=== PATIENT | female | born 1975 | race Two or more races ===

== ENCOUNTER 2019-08-15 15:23 | Inpatient (IN) | payer SELFPAY ==
[2019-08-15 15:33] VITALS: BMI 30.2
--- NOTE | 2019-08-15 15:48 | PDOC ---
History of Present Illness - General Chief Complaint: Blood Transfusion Stated Complaint: BLOOD TRANSFUSION Time Seen by Provider: 08/15/19 15:38 - History of Present Illness Initial Comments: 44 yo F PMH CML diagnosed 8 years ago, now advanced to AML 2 months ago s/p chemo, now on Tasigna one pill twice a day, c/b pancytopenia with vaginal bleeding on TXA, presenting with generalized weakness. States that it feels identical to prior episodes when her blood counts have gotten low. Reports 6 transfusions over the past 2 months. Patient is from [facility] and is here visiting family for the past 6 days. Notes that her Hgb was 6.3 before leaving [place], and she received 2 units of blood at that time. Past History - Past Medical History Allergies/Adverse Reactions: Allergies Allergy/AdvReac Type Severity Reaction Status Date / Time No Known Allergies Allergy Verified 08/15/19 15:33 Home Medications: Ambulatory Orders Acyclovir [Zovirax -] 400 mg PO BID 08/15/19 Nilotinib HCl [Tasigna] 400 mg PO BID 08/15/19 Norethindrone Acetate 5 mg PO DAILY 08/15/19 Tranexamic Acid 1,300 mg PO TID 08/15/19 COPD: No Other medical history: CHRONIC MYELO LEUKEMIA - Immunization History Immunization Up to Date: No - Psycho Social/Smoking Cessation Hx Smoking History: Never smoked Have you smoked in the past 12 months: No Information on smoking cessation initiated: No Hx Alcohol Use: No Drug/Substance Use Hx: No *Physical Exam - Vital Signs Last Vital Signs Temp Pulse Resp BP Pulse Ox 97.8 F 96 H 16 151/77 98 08/15/19 15:30 08/15/19 15:30 08/15/19 15:30 08/15/19 15:30 08/15/19 15:30 ED Treatment Course - LABORATORY CBC & Chemistry Diagram: 08/16/19 08:10 08/16/19 08:10 Medical Decision Making - Medical Decision Making 08/15/19 14:58 44 yo F PMH CML/AML actively on chemo presenting with SOB. Concern for anemia. - CBC, CMP - EKG, trop - coags - T+S - likely admit, transfuse 08/15/19 16:58 WBC 2.2, Hgb 6.7, Platelets 125. EKG normal sinus at 88 bpm. Will transfuse and admit. Discharge - Discharge Information Problems reviewed: Yes Clinical Impression/Diagnosis: Symptomatic anemia, AML (acute myeloid leukemia), CML (chronic myeloid leukemia ) Condition: Stable - Follow up/Referral - Patient Discharge Instructions - Post Discharge Activity
[2019-08-15 16:34] LABS: MCH 27.9 pg (25.7-33.7); MCHC 33.7 g/dl (32.0-36.0); WHITE BLOOD COUNT 2.2 K/mm3 (4.0-10.0)
[2019-08-15 16:41] LABS: BASO % 0.7 % (0-2.0); EOS % 0.2 % (0-4.5); HEMATOCRIT 19.9 % (32.4-45.2); MEAN PLT VOLUME 9.3 fl (7.5-11.1); MONO % 33.3 % (3.8-10.2); NEUT % 38.8 % (42.8-82.8); PLATELET COUNT 125 K/MM3 (134-434); RBC 2.39 M/mm3 (3.60-5.2); RDW 16.2 % (11.6-15.6)
[2019-08-15 16:43] LABS: HEMOGLOBIN 6.7 GM/dL (10.7-15.3)
[2019-08-15 16:48] LABS: INR 1.37 (0.83-1.09); PROTHROMBIN TIME (PATIENT) 16.2 SEC (9.7-13.0)
[2019-08-15 16:51] LABS: ACTIVATED PTT 30.8 SECONDS (25.2-36.5)
[2019-08-15 17:10] LABS: ALBUMIN 3.9 g/dl (3.4-5.0); BILIRUBIN,TOTAL 1.8 mg/dL (0.2-1); BLOOD UREA NITROGEN 7.7 mg/dL (7-18); CALCIUM 8.5 mg/dL (8.5-10.1); CREATININE 0.6 mg/dL (0.55-1.3); POTASSIUM 3.9 mmol/L (3.5-5.1); TOT PROT 6.4 g/dl (6.4-8.2)
[2019-08-15 17:26] LABS: ANISOCYTOSIS 1+; PLATELET ESTIMATE DECREASED
--- NOTE | 2019-08-15 17:34 | PDOC ---
Documentation entered by Jacques Serrano SCRIBE, acting as scribe for Bashir Holloway MD. Bashir Holloway MD: This documentation has been prepared by the Zach gamez Xhesika, SCRIBE, under my direction and personally reviewed by me in its entirety. I confirm that the documentation accurately reflects all work, treatment, procedures, and medical decision making performed by me. Attending Attestation - Resident Resident Name: Antoni Flynn - ED Attending Attestation I have performed the following: I have examined & evaluated the patient, The case was reviewed & discussed with the resident, I agree w/resident's findings & plan, Exceptions are as noted - HPI HPI: 08/15/19 16:56 The patient is a 44 year old female with a PMH of chronic myelo leukemia ( requires blood transfusions) who presents to the ED for fatigue. Patient states she requires transfusions when her HGB is below 7. Patient states her last blood transfusion was 6 days ago (08/09/19). The patient denies shortness of breath, headache and dizziness. Denies fever, chills, cough, nausea, vomiting, diarrhea and constipation. Denies dysuria, frequency, urgency and hematuria. Allergies:, NKDA Social Hx: Denies current smoking, drinking, or other substance usage - Physicial Exam PE: 08/15/19 16:57 Vitals: Triage Vital signs reviewed Chest Wall: Nontender Cardiac: Regular rate and rhythm, no murmurs, no rubs, no gallops, Lungs: Clear to auscultation bilaterally, good air movement bilaterally, Abdomen: Soft, nondistended, normal bowel sounds, nontender to palpation Extremities: Full range of motion to all extremities, no cyanosis, clubbing, or edema Skin: Warm and dry, no rashes or lesions, no petechiae Neuro: AOX3; Cranial Nerves 2-12 grossly c intact, Strength intact to all extremities, Sensation intact to all extremities, gait normal Psych: normal mood, normal affect - Medical Decision Making 08/15/19 17:34 Chronic myeloleukemia requiring frequent blood transfusions presents with symptomatic anemia Hemoglobin 6.7 We will admit for blood transfusions and further management.
--- NOTE | 2019-08-15 19:12 | PN ---
Teaching Attending Note Name of Resident: Heena Crook ATTENDING PHYSICIAN STATEMENT I saw and evaluated the patient. I reviewed the resident's note and discussed the case with the resident. I agree with the resident's findings and plan as documented. SUBJECTIVE: Patient is a 44 year old woman with a PMH of Chronic myeloid leukemia that converted to AML (requires blood transfusions) s/p chemotherapy, now on Tasigna one pill twice a day, Pancytopenia with vaginal bleeding presenting with generalized weakness. Patient states she requires transfusions when her HGB is below 7. Patient states her last blood transfusion was 6 days ago (). The patient denies shortness of breath, headache and dizziness. Denies fever, chills, cough, nausea, vomiting, diarrhea and constipation. Denies dysuria, frequency, urgency and hematuria. Reports 6 transfusions over the past 2 months. Patient is from [facility] and is here visiting family for the past 6 days. Notes that her hemoglobin was 6.3 g/dL before leaving [place], and she received 2 units of blood at that time. Denies smoking, drinking, or other illicit drug use. OBJECTIVE: Alert Vital Signs Period Temp Pulse Resp BP Sys/Pretty Pulse Ox Last 24 Hr 97.8 F-99.3 F 93-102 16-18 127-151/58-82 98-100 HEENT: +Pallor; No Jaundice, eye redness or discharge, PERRLA, EOMI. Normocephalic, atraumatic. External ears are normal and hearing is grossly intact. No nasal discharge. Neck: Supple, nontender. No palpable adenopathy or thyromegaly. No JVD Chest: Good effort. Clear to auscultation and percussion. Heart: Regular. No S3, rub or murmur Abdomen: Not distended, soft, nontender and no HSM. No rebound or guarding. Normal bowel sounds. Ext: Peripheral pulses intact. No leg edema. Skin: Warm and dry. No petechiae, rash or ecchymosis. Neuro: Alert. Oriented x3. CN 2-12 grossly intact. Sensation grossly intact in all four extremities and DTR are symmetric. Psych: Appropriate mood and affect. Good insight. Home Medications Medication Instructions Recorded Acyclovir [Zovirax -] 400 mg PO BID 08/15/19 Nilotinib HCl [Tasigna] 400 mg PO BID 08/15/19 Norethindrone Acetate 5 mg PO DAILY 08/15/19 Tranexamic Acid 1,300 mg PO TID 08/15/19 Abnormal Lab Results 08/15/19 08/15/19 08/15/19 16:24 16:24 16:24 WBC 2.2 L RBC 2.39 L Hgb 6.7 L* Hct 19.9 L RDW 16.2 H Plt Count 125 L Absolute Neuts (auto) 0.8 L Neutrophils % 38.8 L Neutrophils % (Manual) 32.0 L Monocytes % 33.3 H Monocytes % (Manual) 27 H Nucleated RBC % 7 H PT with INR 16.20 H INR 1.37 H Anion Gap 7 L Random Glucose 175 H Total Bilirubin 1.8 H AST 12 L Creatine Kinase Crossmatch 08/15/19 08/15/19 16:24 16:24 WBC RBC Hgb Hct RDW Plt Count Absolute Neuts (auto) Neutrophils % Neutrophils % (Manual) Monocytes % Monocytes % (Manual) Nucleated RBC % PT with INR INR Anion Gap Random Glucose Total Bilirubin AST Creatine Kinase 20 L Crossmatch See Detail ASSESSMENT AND PLAN: 1. Pancytopenia/Symptomatic anemia - Anemia likely due to her leukemia. No evidence of acute blood loss. Patient being transfused 2 units PRBC. EKG shows NSR with no significant ST-T wave changes. Will implement neutropenic precautions. Will check HbA1c. Will continue comprehensive care for all of patients comorbid conditions. 2. DVT prophylaxis - Lovenox 40 mg SQ q 24 hours. 3. Advance directives - Full code
--- NOTE | 2019-08-15 19:58 | HP ---
CHIEF COMPLAINT: generalized weakness PCP:in [place] HISTORY OF PRESENT ILLNESS: 44 yo F PMH of AML ( on Tasigna) presents to ED with generalized weakness. pt states that these symptoms began last night. 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 she states that for the past 2 months her pancytopenia worsened causing her to have increased vaginal bleeding for which she takes tranexamic acid and norethindrone. she states that for the past month she has recurrent episodes of generalized weakness and needs transfusions every week. her last transfusion was 5-6 days ago in [place] which she recieved 2 units of prbc. she follows up with her oncologist 2x/ week. she came from [place] on 08/09 and is returning on 08/17. she denies fevers/ chills, nausea, vomiting, chest pain. she endorses dizziness ER course was notable for: (1)Hgb 6.7 (2)1 U pRBC (3) Recent Travel: 08/09 [place] PAST MEDICAL HISTORY: CML, AML PAST SURGICAL HISTORY: denies Social History: Smoking:denies Alcohol:social Drugs: denies Allergies No Known Allergies Allergy (Verified 08/15/19 15:33) HOME MEDICATIONS: Home Medications Medication Instructions Recorded Acyclovir [Zovirax -] 400 mg PO BID 08/15/19 Nilotinib HCl [Tasigna] 400 mg PO BID 08/15/19 Norethindrone Acetate 5 mg PO DAILY 08/15/19 Tranexamic Acid 1,300 mg PO TID 08/15/19 REVIEW OF SYSTEMS CONSTITUTIONAL: Present: generalized weakness Absent: fever, chills, diaphoresis, generalized weakness, malaise, loss of appetite, weight change HEENT: Absent: rhinorrhea, nasal congestion, throat pain, throat swelling, difficulty swallowing, mouth swelling, ear pain, eye pain, visual changes CARDIOVASCULAR: Absent: chest pain, syncope, palpitations, irregular heart rate, lightheadedness , peripheral edema RESPIRATORY: Absent: cough, shortness of breath, dyspnea with exertion, orthopnea, wheezing, stridor, hemoptysis GASTROINTESTINAL: Absent: abdominal pain, abdominal distension, nausea, vomiting, diarrhea, constipation, melena, hematochezia GENITOURINARY: Absent: dysuria, frequency, urgency, hesitancy, hematuria, flank pain, genital pain MUSCULOSKELETAL: Absent: myalgia, arthralgia, joint swelling, back pain, neck pain SKIN: Absent: rash, itching, pallor ENDOCRINE: Absent: unexplained weight gain, unexplained weight loss, heat intolerance, cold intolerance NEUROLOGIC: Present: dizziness Absent: headache, focal weakness or paresthesias, unsteady gait, seizure, mental status changes PHYSICAL EXAMINATION Vital Signs - 24 hr 08/15/19 08/15/19 15:30 18:39 Temperature 97.8 F 98.9 F Pulse Rate 96 H Pulse Rate [ 93 H Right Radial] Respiratory 16 18 Rate Blood Pressure 151/77 Blood Pressure 141/82 [Left Arm] O2 Sat by Pulse 98 98 Oximetry (%) GENERAL: Awake, alert, and fully oriented, in no acute distress. HEAD: Normal with no signs of trauma. EYES: Pupils equal, round and reactive to light, extraocular movements intact, sclera anicteric, conjunctiva clear. EARS, NOSE, THROAT: oropharynx clear without exudates. Moist mucous membranes. NECK: Normal range of motion, supple without lymphadenopathy, JVD, or masses. LUNGS: Breath sounds equal, clear to auscultation bilaterally. No wheezes, and no crackles. No accessory muscle use. HEART: Regular rate and rhythm, + S1 and S2 , systolic murmur ABDOMEN: Soft, nontender, not distended, normoactive bowel sounds, no guarding, no rebound, no masses. MUSCULOSKELETAL: Normal range of motion at all joints. No bony deformities or tenderness. No CVA tenderness. UPPER EXTREMITIES: 2+ pulses, warm, well-perfused. No cyanosis. No clubbing. No peripheral edema. LOWER EXTREMITIES: 2+ pulses, warm, well-perfused. No calf tenderness. No peripheral edema. NEUROLOGICAL: Cranial nerves II-XII intact. Normal speech. Normal gait. PSYCHIATRIC: Cooperative. Good eye contact. Appropriate mood and affect. SKIN: Warm, dry, normal turgor, no rashes or lesions noted, normal capillary refill. Laboratory Last Values WBC 2.2 K/mm3 (4.0-10.0) L 08/15/19 16:24 RBC 2.39 M/mm3 (3.60-5.2) L 08/15/19 16:24 Hgb 6.7 GM/dL (10.7-15.3) L* 08/15/19 16:24 Hct 19.9 % (32.4-45.2) L 08/15/19 16:24 MCV 83.0 fl (80-96) 08/15/19 16:24 MCH 27.9 pg (25.7-33.7) 08/15/19 16:24 MCHC 33.7 g/dl (32.0-36.0) 08/15/19 16:24 RDW 16.2 % (11.6-15.6) H 08/15/19 16:24 Plt Count 125 K/MM3 (134-434) L 08/15/19 16:24 MPV 9.3 fl (7.5-11.1) 08/15/19 16:24 Absolute Neuts (auto) 0.8 K/mm3 (1.5-8.0) L 08/15/19 16:24 Total Counted 100 08/15/19 16:24 Neutrophils % 38.8 % (42.8-82.8) L 08/15/19 16:24 Neutrophils % (Manual) 32.0 % (42.8-82.8) L 08/15/19 16:24 Band Neutrophils % 2.0 % 08/15/19 16:24 Lymphocytes % 27.0 % (8-40) 08/15/19 16:24 Lymphocytes % (Manual) 38.0 % (8-40) 08/15/19 16:24 Monocytes % 33.3 % (3.8-10.2) H 08/15/19 16:24 Monocytes % (Manual) 27 % (3.8-10.2) H 08/15/19 16:24 Eosinophils % 0.2 % (0-4.5) 08/15/19 16:24 Eosinophils % (Manual) 1.0 % (0-4.5) 08/15/19 16:24 Basophils % 0.7 % (0-2.0) 08/15/19 16:24 Nucleated RBC % 7 % (0-0) H 08/15/19 16:24 Hypochromia 1+ 08/15/19 16:24 Platelet Estimate Decreased 08/15/19 16:24 Platelet Comment No clumping noted 08/15/19 16:24 Polychromasia 1+ 01/01/20 16:24 Anisocytosis 1+ 08/15/19 16:24 Microcytosis 1+ 08/15/19 16:24 PT with INR 16.20 SEC (9.7-13.0) H 08/15/19 16:24 INR 1.37 (0.83-1.09) H 08/15/19 16:24 PTT (Actin FS) 30.8 SECONDS (25.2-36.5) 08/15/19 16:24 Sodium 138 mmol/L (136-145) 08/15/19 16:24 Potassium 3.9 mmol/L (3.5-5.1) 08/15/19 16:24 Chloride 103 mmol/L (98-107) 08/15/19 16:24 Carbon Dioxide 28 mmol/L (21-32) 08/15/19 16:24 Anion Gap 7 MMOL/L (8-16) L 08/15/19 16:24 BUN 7.7 mg/dL (7-18) 08/15/19 16:24 Creatinine 0.6 mg/dL (0.55-1.3) 08/15/19 16:24 Est GFR (CKD-EPI)AfAm 127.58 08/15/19 16:24 Est GFR (CKD-EPI)NonAf 110.08 08/15/19 16:24 Random Glucose 175 mg/dL (74-106) H 08/15/19 16:24 Calcium 8.5 mg/dL (8.5-10.1) 08/15/19 16:24 Total Bilirubin 1.8 mg/dL (0.2-1) H 08/15/19 16:24 AST 12 U/L (15-37) L 08/15/19 16:24 ALT 20 U/L (13-61) 08/15/19 16:24 Alkaline Phosphatase 63 U/L (45-117) 08/15/19 16:24 Creatine Kinase 20 U/L (26-192) L 08/15/19 16:24 Troponin I < 0.02 ng/ml (0.00-0.05) 08/15/19 16:24 Total Protein 6.4 g/dl (6.4-8.2) 08/15/19 16:24 Albumin 3.9 g/dl (3.4-5.0) 01/01/20 16:24 Blood Type O POSITIVE 08/15/19 17:04 Antibody Screen Negative 08/15/19 16:24 Crossmatch See Detail 08/15/19 16:24 ASSESSMENT/PLAN: 44 yo F PMH of AML ( on Tasigna) presents to ED with generalized weakness. pt is admitted for symptomatic anemia Normocytic anemia 2/2 AML - Hgb 6.7 - 1 U pRBC - continue to monitor CBC -goal Hgb >8 -Heme/onc recs appreciated - continue tasigna, acyclovir, tranexamic acid, norethindrone -consider stonehand consult for vaginal bleeding F/E/N - monitor lytes - regular diet Dispo: Admit to medicine Visit type - Emergency Visit Emergency Visit: Yes ED Registration Date: 08/15/19 Care time: The patient presented to the Emergency Department on the above date and was hospitalized for further evaluation of their emergent condition. - New Patient This patient is new to me today: Yes Date on this admission: 08/16/19 - Critical Care Critical Care patient: No ATTENDING PHYSICIAN STATEMENT I saw and evaluated the patient. I reviewed the resident's note and discussed the case with the resident. I agree with the resident's findings and plan as documented. SUBJECTIVE: OBJECTIVE: ASSESSMENT AND PLAN:
[2019-08-15] MEDS ORDERED: ACETAMINOPHEN 325 MG TABLET (FP) PO PRN (21:08)
[2019-08-15] MEDS ORDERED: FLU VACCINE QUAD 60 MCG/0.5 ML (MDV 19-20) IM ONE (23:30)
[2019-08-16 08:33] LABS: BASO % 1.5 % (0-2.0); EOS % 0.1 % (0-4.5); LYMPH % 32.8 % (8-40); MCH 27.8 pg (25.7-33.7); MCHC 33.9 g/dl (32.0-36.0); MEAN CELL VOLUME 82.2 fl (80-96); MEAN PLT VOLUME 9.1 fl (7.5-11.1); MONO % 32.4 % (3.8-10.2); NEUT % 33.2 % (42.8-82.8); PLATELET COUNT 123 K/MM3 (134-434); RBC 2.44 M/mm3 (3.60-5.2); RDW 15.9 % (11.6-15.6)
[2019-08-16 08:43] LABS: HEMOGLOBIN 6.8 GM/dL (10.7-15.3); WHITE BLOOD COUNT 1.8 K/mm3 (4.0-10.0)
[2019-08-16 09:00] LABS: ALBUMIN 3.4 g/dl (3.4-5.0); BILIRUBIN,TOTAL 2.2 mg/dL (0.2-1); BLOOD UREA NITROGEN 7.7 mg/dL (7-18); CALCIUM 8.4 mg/dL (8.5-10.1); CREATININE 0.6 mg/dL (0.55-1.3); MAGNESIUM 2.1 mg/dL (1.8-2.4); PHOSPHOROUS 4.7 mg/dL (2.5-4.9); POTASSIUM 3.7 mmol/L (3.5-5.1); TOT PROT 5.8 g/dl (6.4-8.2)
[2019-08-16] MEDS ORDERED: NILOTINIB HCL 400 MG PO SCH (10:00)
[2019-08-16] MEDS ORDERED: ACYCLOVIR 400 MG TABLET PO SCH (10:00)
--- NOTE | 2019-08-16 11:52 | EKG ---
Test Reason : Blood Pressure : / mmHG Vent. Rate : 088 BPM Atrial Rate : 088 BPM P-R Int : 136 ms QRS Dur : 088 ms QT Int : 360 ms P-R-T Axes : 060 025 046 degrees QTc Int : 435 ms NORMAL SINUS RHYTHM NORMAL ECG NO PREVIOUS ECGS AVAILABLE Confirmed by TIKI KAN MD ([id number]) on 08/16/2019 11:52:14 AM Referred By: Confirmed By:TIKI KAN MD
[2019-08-16 12:03] LABS: ANISOCYTOSIS 3+; MACROCYTOSIS 0; PLATELET ESTIMATE DECREASED
--- NOTE | 2019-08-16 12:06 | CONSULT ---
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 HISTORY OF PRESENT ILLNESS: 44 yo F PMH of AML ( on Tasigna) presents to ED with generalized weakness. pt states that these symptoms began last night. 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 she states that for the past 2 months her pancytopenia worsened causing her to have increased vaginal bleeding for which she takes tranexamic acid and norethindrone. she states that for the past month she has recurrent episodes of generalized weakness and needs transfusions every week. her last transfusion was 5-6 days ago in [place] which she received 2 units of prbc. she follows up with her oncologist 2x/ week. she came from [place] on 08/09 and is returning on 08/17. she denies fevers/ chills, nausea, vomiting, chest pain. pt feels better and denies any new symptoms Recent Travel: 08/09 [place], will return to [place] tomorrow PAST MEDICAL HISTORY: CML, AML PAST SURGICAL HISTORY: denies Social History: Smoking:denies Alcohol:social Drugs: denies REVIEW OF SYSTEMS: denies any symptoms , feels better , denies any fever , chills, N/V/D?C denies any abdominal pain ,denies any hematuria or melena , no plapitation , no dizziness , no chest pain PHYSICAL EXAMINATION Vital Signs - 24 hr 08/15/19 08/15/19 08/15/19 15:30 18:39 19:56 Temperature 97.8 F 98.9 F 98.5 F Pulse Rate 96 H Pulse Rate [ 93 H 98 H Right Radial] Respiratory 16 18 18 Rate Blood Pressure 151/77 Blood Pressure 141/82 147/77 [Left Arm] O2 Sat by Pulse 98 98 100 Oximetry (%) 08/15/19 08/15/19 08/15/19 20:10 21:12 21:40 Temperature 99.3 F 99.2 F 98.4 F Pulse Rate 86 Pulse Rate [ 102 H Right Radial] Respiratory 18 18 Rate Blood Pressure 136/72 Blood Pressure 127/58 L [Left Arm] O2 Sat by Pulse 100 Oximetry (%) 0108/16/19 08/16/19 21:50 02:27 02:28 Temperature 97.8 F Pulse Rate 85 Pulse Rate [ Right Radial] Respiratory 18 18 18 Rate Blood Pressure 137/69 Blood Pressure [Left Arm] O2 Sat by Pulse 100 100 Oximetry (%) 08/16/19 08/16/19 06:16 08:30 Temperature 98.2 F 98.8 F Pulse Rate 82 90 Pulse Rate [ Right Radial] Respiratory 18 18 Rate Blood Pressure 124/65 123/70 Blood Pressure [Left Arm] O2 Sat by Pulse Oximetry (%) GENERAL: Awake, alert, and fully oriented, in no acute distress.pallor HEAD: Normal with no signs of trauma.hair loss EYES: Pupils equal, round and reactive to light, extraocular movements intact, sclera anicteric, EARS, NOSE, THROAT: Ears normal, nares patent, oropharynx clear without exudates. Moist mucous membranes.no thrush or mycositis NECK: Normal range of motion, supple without lymphadenopathy, breast with no palpated masses noded : no enlarged nodules palpated LUNGS: Breath sounds equal, clear to auscultation bilaterally. No wheezes, and no crackles. No accessory muscle use. HEART: Regular rate and rhythm, normal S1 and S2 without murmur, rub or gallop. ABDOMEN: Soft, nontender, not distended, normoactive bowel sounds, no guarding, LOWER EXTREMITIES: 2+ pulses, warm, well-perfused. No calf tenderness. No peripheral edema. NEUROLOGICAL: no focal deficit . Normal speech. PSYCHIATRIC: Cooperative. Good eye contact. SKIN: Warm, dry, normal turgor, head hair loss Laboratory Results - last 24 hr 08/15/19 08/15/19 08/15/19 16:24 16:24 16:24 WBC 2.2 L RBC 2.39 L Hgb 6.7 L* Hct 19.9 L MCV 83.0 MCH 27.9 MCHC 33.7 RDW 16.2 H Plt Count 125 L MPV 9.3 Absolute Neuts (auto) 0.8 L Total Counted 100 Neutrophils % 38.8 L Neutrophils % (Manual) 32.0 L Band Neutrophils % 2.0 Lymphocytes % 27.0 Lymphocytes % (Manual) 38.0 Monocytes % 33.3 H Monocytes % (Manual) 27 H Eosinophils % 0.2 Eosinophils % (Manual) 1.0 Basophils % 0.7 Nucleated RBC % 7 H Hypochromia 1+ Platelet Estimate Decreased Platelet Comment No clumping noted Polychromasia 1+ Anisocytosis 1+ Microcytosis 1+ PT with INR 16.20 H INR 1.37 H PTT (Actin FS) 30.8 Sodium 138 Potassium 3.9 Chloride 103 Carbon Dioxide 28 Anion Gap 7 L BUN 7.7 Creatinine 0.6 Est GFR (CKD-EPI)AfAm 127.58 Est GFR (CKD-EPI)NonAf 110.08 Random Glucose 175 H Hemoglobin A1c % Calcium 8.5 Phosphorus Magnesium Total Bilirubin 1.8 H AST 12 L ALT 20 Alkaline Phosphatase 63 Creatine Kinase Troponin I Total Protein 6.4 Albumin 3.9 Blood Type Antibody Screen Crossmatch 08/15/19 08/15/19 08/15/19 16:24 16:24 17:04 WBC RBC Hgb Hct MCV MCH MCHC RDW Plt Count MPV Absolute Neuts (auto) Total Counted Neutrophils % Neutrophils % (Manual) Band Neutrophils % Lymphocytes % Lymphocytes % (Manual) Monocytes % Monocytes % (Manual) Eosinophils % Eosinophils % (Manual) Basophils % Nucleated RBC % Hypochromia Platelet Estimate Platelet Comment Polychromasia Anisocytosis Microcytosis PT with INR INR PTT (Actin FS) Sodium Potassium Chloride Carbon Dioxide Anion Gap BUN Creatinine Est GFR (CKD-EPI)AfAm Est GFR (CKD-EPI)NonAf Random Glucose Hemoglobin A1c % Calcium Phosphorus Magnesium Total Bilirubin AST ALT Alkaline Phosphatase Creatine Kinase 20 L Troponin I < 0.02 Total Protein Albumin Blood Type O POSITIVE Cancelled Antibody Screen Negative Cancelled Crossmatch See Detail 08/15/19 08/16/19 08/16/19 17:04 08:10 08:10 WBC 1.8 L* RBC 2.44 L Hgb 6.8 L* Hct 20.0 L MCV 82.2 MCH 27.8 MCHC 33.9 RDW 15.9 H Plt Count 123 L MPV 9.1 Absolute Neuts (auto) 0.6 L Total Counted Neutrophils % 33.2 L Neutrophils % (Manual) Band Neutrophils % Lymphocytes % 32.8 D Lymphocytes % (Manual) Monocytes % 32.4 H Monocytes % (Manual) Eosinophils % 0.1 Eosinophils % (Manual) Basophils % 1.5 Nucleated RBC % 8 H Hypochromia Platelet Estimate Platelet Comment Polychromasia Anisocytosis Microcytosis PT with INR INR PTT (Actin FS) Sodium 140 Potassium 3.7 Chloride 105 Carbon Dioxide 30 Anion Gap 5 L BUN 7.7 Creatinine 0.6 Est GFR (CKD-EPI)AfAm 127.58 Est GFR (CKD-EPI)NonAf 110.08 Random Glucose 149 H Hemoglobin A1c % Calcium 8.4 L Phosphorus 4.7 Magnesium 2.1 Total Bilirubin 2.2 H AST 8 L ALT 17 Alkaline Phosphatase 57 Creatine Kinase Troponin I Total Protein 5.8 L Albumin 3.4 Blood Type O POSITIVE Antibody Screen Crossmatch 08/16/19 08:10 WBC RBC Hgb Hct MCV MCH MCHC RDW Plt Count MPV Absolute Neuts (auto) Total Counted Neutrophils % Neutrophils % (Manual) Band Neutrophils % Lymphocytes % Lymphocytes % (Manual) Monocytes % Monocytes % (Manual) Eosinophils % Eosinophils % (Manual) Basophils % Nucleated RBC % Hypochromia Platelet Estimate Platelet Comment Polychromasia Anisocytosis Microcytosis PT with INR INR PTT (Actin FS) Sodium Potassium Chloride Carbon Dioxide Anion Gap BUN Creatinine Est GFR (CKD-EPI)AfAm Est GFR (CKD-EPI)NonAf Random Glucose Hemoglobin A1c % 6.0 Calcium Phosphorus Magnesium Total Bilirubin AST ALT Alkaline Phosphatase Creatine Kinase Troponin I Total Protein Albumin Blood Type Antibody Screen Crossmatch Active Medications Generic Name Dose Route Start Last Admin Trade Name Freq PRN Reason Stop Dose Admin Acetaminophen 650 mg 08/15/19 21:08 08/15/19 21:15 Tylenol - PO 650 mg Q6H PRN Administration PAIN LEVEL 6-10 Acyclovir 400 mg 08/16/19 10:00 Zovirax - PO BID [facility] Non-Formulary Medication 400 mg 08/16/19 10:00 Nilotinib Hcl [Tasigna] PO BID [facility] Non-Formulary Medication 5 mg 08/16/19 10:00 Norethindrone Acetate [Norethindrone Acetate] PO DAILY [facility] Non-Formulary Medication 1,300 mg 08/16/19 14:00 Tranexamic Acid [Tranexamic Acid] PO TID [facility] CBC, BMP 08/16/19 08:10 08/16/19 08:10 ASSESSMENT/PLAN: 44 yo F PMH of AML ( on Tasigna) presents to ED with generalized weakness. 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 Thank you for this consultative opportunity. ATTENDING PHYSICIAN STATEMENT I saw and evaluated the patient. I reviewed the resident's note and discussed the case with the resident. I agree with the resident's findings and plan as documented. SUBJECTIVE: OBJECTIVE: ASSESSMENT AND PLAN:
--- NOTE | 2019-08-16 13:27 | PN ---
Physical Exam: SUBJECTIVE: Patient seen and examined. She reports feeling better after 1 unit of blood--decreased weakness, no headache, dizziness, chest pain, shortness of breath. She is tolerating diet. OBJECTIVE: Vital Signs Period Temp Pulse Resp BP Sys/Pretty Pulse Ox Last 24 Hr 97.8 F-99.3 F 82-102 16-18 123-151/58-82 98-100 GENERAL: The patient is awake, alert, and fully oriented, in no acute distress. HEAD: Normal with no signs of trauma. EYES: PERRL, extraocular movements intact, sclera anicteric, conjunctiva clear. No ptosis. ENT: Ears normal, nares patent, oropharynx clear without exudates, moist mucous membranes. NECK: Trachea midline, full range of motion, supple. LUNGS: Breath sounds equal, clear to auscultation bilaterally, no wheezes, no crackles, no accessory muscle use. HEART: Regular rate and rhythm, S1, S2 without murmur, rub or gallop. ABDOMEN: Soft, nontender, nondistended, normoactive bowel sounds, no guarding, no rebound, no hepatosplenomegaly, no masses. EXTREMITIES: 2+ pulses, warm, well-perfused, no edema. NEUROLOGICAL: Cranial nerves II through XII grossly intact. Normal speech, gait not observed. PSYCH: Normal mood, normal affect. SKIN: Warm, dry, normal turgor, no rashes or lesions noted Laboratory Results - last 24 hr 08/15/19 08/15/19 08/15/19 16:24 16:24 16:24 WBC 2.2 L RBC 2.39 L Hgb 6.7 L* Hct 19.9 L MCV 83.0 MCH 27.9 MCHC 33.7 RDW 16.2 H Plt Count 125 L MPV 9.3 Absolute Neuts (auto) 0.8 L Total Counted 100 Neutrophils % 38.8 L Neutrophils % (Manual) 32.0 L Band Neutrophils % 2.0 Lymphocytes % 27.0 Lymphocytes % (Manual) 38.0 Monocytes % 33.3 H Monocytes % (Manual) 27 H Eosinophils % 0.2 Eosinophils % (Manual) 1.0 Basophils % 0.7 Nucleated RBC % 7 H Hypochromia 1+ Platelet Estimate Decreased Platelet Comment No clumping noted Polychromasia 1+ Anisocytosis 1+ Microcytosis 1+ PT with INR 16.20 H INR 1.37 H PTT (Actin FS) 30.8 Sodium 138 Potassium 3.9 Chloride 103 Carbon Dioxide 28 Anion Gap 7 L BUN 7.7 Creatinine 0.6 Est GFR (CKD-EPI)AfAm 127.58 Est GFR (CKD-EPI)NonAf 110.08 Random Glucose 175 H Hemoglobin A1c % Calcium 8.5 Phosphorus Magnesium Total Bilirubin 1.8 H AST 12 L ALT 20 Alkaline Phosphatase 63 Creatine Kinase Troponin I Total Protein 6.4 Albumin 3.9 Blood Type Antibody Screen Crossmatch 08/15/19 08/15/19 08/15/19 16:24 16:24 17:04 WBC RBC Hgb Hct MCV MCH MCHC RDW Plt Count MPV Absolute Neuts (auto) Total Counted Neutrophils % Neutrophils % (Manual) Band Neutrophils % Lymphocytes % Lymphocytes % (Manual) Monocytes % Monocytes % (Manual) Eosinophils % Eosinophils % (Manual) Basophils % Nucleated RBC % Hypochromia Platelet Estimate Platelet Comment Polychromasia Anisocytosis Microcytosis PT with INR INR PTT (Actin FS) Sodium Potassium Chloride Carbon Dioxide Anion Gap BUN Creatinine Est GFR (CKD-EPI)AfAm Est GFR (CKD-EPI)NonAf Random Glucose Hemoglobin A1c % Calcium Phosphorus Magnesium Total Bilirubin AST ALT Alkaline Phosphatase Creatine Kinase 20 L Troponin I < 0.02 Total Protein Albumin Blood Type O POSITIVE Cancelled Antibody Screen Negative Cancelled Crossmatch See Detail 08/15/19 08/16/19 08/16/19 17:04 08:10 08:10 WBC 1.8 L* RBC 2.44 L Hgb 6.8 L* Hct 20.0 L MCV 82.2 MCH 27.8 MCHC 33.9 RDW 15.9 H Plt Count 123 L MPV 9.1 Absolute Neuts (auto) 0.6 L Total Counted Neutrophils % 33.2 L Neutrophils % (Manual) Band Neutrophils % Lymphocytes % 32.8 D Lymphocytes % (Manual) Monocytes % 32.4 H Monocytes % (Manual) Eosinophils % 0.1 Eosinophils % (Manual) Basophils % 1.5 Nucleated RBC % 8 H Hypochromia Platelet Estimate Platelet Comment Polychromasia Anisocytosis Microcytosis PT with INR INR PTT (Actin FS) Sodium 140 Potassium 3.7 Chloride 105 Carbon Dioxide 30 Anion Gap 5 L BUN 7.7 Creatinine 0.6 Est GFR (CKD-EPI)AfAm 127.58 Est GFR (CKD-EPI)NonAf 110.08 Random Glucose 149 H Hemoglobin A1c % Calcium 8.4 L Phosphorus 4.7 Magnesium 2.1 Total Bilirubin 2.2 H AST 8 L ALT 17 Alkaline Phosphatase 57 Creatine Kinase Troponin I Total Protein 5.8 L Albumin 3.4 Blood Type O POSITIVE Antibody Screen Crossmatch 08/16/19 08:10 WBC RBC Hgb Hct MCV MCH MCHC RDW Plt Count MPV Absolute Neuts (auto) Total Counted Neutrophils % Neutrophils % (Manual) Band Neutrophils % Lymphocytes % Lymphocytes % (Manual) Monocytes % Monocytes % (Manual) Eosinophils % Eosinophils % (Manual) Basophils % Nucleated RBC % Hypochromia Platelet Estimate Platelet Comment Polychromasia Anisocytosis Microcytosis PT with INR INR PTT (Actin FS) Sodium Potassium Chloride Carbon Dioxide Anion Gap BUN Creatinine Est GFR (CKD-EPI)AfAm Est GFR (CKD-EPI)NonAf Random Glucose Hemoglobin A1c % 6.0 Calcium Phosphorus Magnesium Total Bilirubin AST ALT Alkaline Phosphatase Creatine Kinase Troponin I Total Protein Albumin Blood Type Antibody Screen Crossmatch Active Medications Generic Name Dose Route Start Last Admin Trade Name Freq PRN Reason Stop Dose Admin Acetaminophen 650 mg 08/15/19 21:08 08/15/19 21:15 Tylenol - PO 650 mg Q6H PRN Administration PAIN LEVEL 6-10 Acyclovir 400 mg 08/16/19 10:00 08/16/19 12:37 Zovirax - PO Not Given BID [facility] Non-Formulary Medication 400 mg 08/16/19 10:00 Nilotinib Hcl [Tasigna] PO BID [facility] Non-Formulary Medication 5 mg 08/16/19 10:00 Norethindrone Acetate [Norethindrone Acetate] PO DAILY [facility] Non-Formulary Medication 1,300 mg 08/16/19 14:00 Tranexamic Acid [Tranexamic Acid] PO TID [facility] ASSESSMENT/PLAN: Ms. Kat is a 44y/o female with AML who presents with generalized weakness. She gets blood transfusions at least weekly and was visiting family while she became weak. #pancytopenia with normocytic anemia 2/2 AML s/p 1 unit PRBCs -decreased weakness post PRBCs -2nd unit PRBCs -continue tasigna, acyclovir, tranexamic acid, norethindrone -pt plans to leave tomorrow to return to [place] despite medical advice against -heme/onc following -blood and urine cx pending -neutropenic precautions DVT Ppx SCDs FEN PO fluids monitor labs neutropenic diet Visit type - Emergency Visit Emergency Visit: Yes ED Registration Date: 08/15/19 Care time: The patient presented to the Emergency Department on the above date and was hospitalized for further evaluation of their emergent condition. - New Patient This patient is new to me today: Yes Date on this admission: 08/16/19 - Critical Care Critical Care patient: No - Discharge Referral Referred to [facility] Med P.C.: No ATTENDING PHYSICIAN STATEMENT I saw and evaluated the patient. I reviewed the resident's note and discussed the case with the resident. I agree with the resident's findings and plan as documented. SUBJECTIVE: OBJECTIVE: ASSESSMENT AND PLAN:
[2019-08-16] MEDS ORDERED: TRANEXAMIC ACID 1300 MG PO SCH (14:00)
--- NOTE | 2019-08-16 16:28 | PN ---
Teaching Attending Note Name of Resident: Melanie Reid ATTENDING PHYSICIAN STATEMENT I saw and evaluated the patient. I reviewed the resident's note and discussed the case with the resident. I agree with the resident's findings and plan as documented. SUBJECTIVE: Patient is getting transfused with no acute distress, getting transfusion of PRBC OBJECTIVE: Vital Signs Temperature 97.9 F 08/16/19 13:45 Pulse Rate 84 08/16/19 13:45 Respiratory Rate 14 08/16/19 13:45 Blood Pressure 132/68 08/16/19 13:45 O2 Sat by Pulse Oximetry (%) 99 08/16/19 09:00 GENERAL: The patient is awake, alert, and fully oriented, in no acute distress. HEAD: Normal with no signs of trauma. EYES: PERRL, extraocular movements intact, sclera anicteric, conjunctiva clear. ENT: Ears normal, oropharynx clear without exudates, moist mucous membranes. NECK: Trachea midline, full range of motion, supple. LUNGS: Breath sounds equal, clear to auscultation bilaterally, no wheezes, no crackles, no accessory muscle use. HEART: Regular rate and rhythm, S1, S2 without murmur, rub or gallop. ABDOMEN: Soft, nontender, nondistended, normoactive bowel sounds, no guarding, no rebound, no hepatosplenomegaly, no masses. EXTREMITIES: 2+ pulses, warm, well-perfused, no edema. NEUROLOGICAL: Cranial nerves II through XII grossly intact. Normal speech, gait not observed. PSYCH: Normal mood, normal affect. SKIN: Warm, dry, normal turgor, no rashes or lesions noted CBCD WBC 1.8 K/mm3 (4.0-10.0) L* 08/16/19 08:10 RBC 2.44 M/mm3 (3.60-5.2) L 08/16/19 08:10 Hgb 6.8 GM/dL (10.7-15.3) L* 08/16/19 08:10 Hct 20.0 % (32.4-45.2) L 08/16/19 08:10 MCV 82.2 fl (80-96) 08/16/19 08:10 MCHC 33.9 g/dl (32.0-36.0) 08/16/19 08:10 RDW 15.9 % (11.6-15.6) H 08/16/19 08:10 Plt Count 123 K/MM3 (134-434) L 08/16/19 08:10 MPV 9.1 fl (7.5-11.1) 08/16/19 08:10 CMP Sodium 140 mmol/L (136-145) 08/16/19 08:10 Potassium 3.7 mmol/L (3.5-5.1) 08/16/19 08:10 Chloride 105 mmol/L (98-107) 08/16/19 08:10 Carbon Dioxide 30 mmol/L (21-32) 08/16/19 08:10 Anion Gap 5 MMOL/L (8-16) L 08/16/19 08:10 BUN 7.7 mg/dL (7-18) 08/16/19 08:10 Creatinine 0.6 mg/dL (0.55-1.3) 08/16/19 08:10 Random Glucose 149 mg/dL (74-106) H 08/16/19 08:10 Calcium 8.4 mg/dL (8.5-10.1) L 08/16/19 08:10 Total Bilirubin 2.2 mg/dL (0.2-1) H 08/16/19 08:10 AST 8 U/L (15-37) L 08/16/19 08:10 ALT 17 U/L (13-61) 08/16/19 08:10 Alkaline Phosphatase 57 U/L (45-117) 08/16/19 08:10 Total Protein 5.8 g/dl (6.4-8.2) L 08/16/19 08:10 Albumin 3.4 g/dl (3.4-5.0) 08/16/19 08:10 CARDIAC ENZYMES Creatine Kinase 20 U/L (26-192) L 08/15/19 16:24 Troponin I < 0.02 ng/ml (0.00-0.05) 08/15/19 16:24 Current Medications Generic Name Dose Route Start Last Admin Trade Name Freq PRN Reason Stop Dose Admin Acetaminophen 650 mg 08/15/19 21:08 08/15/19 21:15 Tylenol - PO 650 mg Q6H PRN Administration PAIN LEVEL 6-10 Acyclovir 400 mg 08/16/19 10:00 08/16/19 12:37 Zovirax - PO Not Given BID [facility] Non-Formulary Medication 400 mg 08/16/19 10:00 Nilotinib Hcl [Tasigna] PO BID [facility] Non-Formulary Medication 5 mg 08/16/19 10:00 Norethindrone Acetate [Norethindrone Acetate] PO DAILY [facility] Non-Formulary Medication 1,300 mg 08/16/19 14:00 Tranexamic Acid [Tranexamic Acid] PO TID [facility] Home Medications Medication Instructions Recorded Acyclovir [Zovirax -] 400 mg PO BID 08/15/19 Nilotinib HCl [Tasigna] 400 mg PO BID 08/15/19 Norethindrone Acetate 5 mg PO DAILY 08/15/19 Tranexamic Acid 1,300 mg PO TID 08/15/19 ASSESSMENT AND PLAN: Patient is a 44 yo F PMHx of AML (on Tasigna) presents to ED with generalized weakness. 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 patient is from [place] oncologist Dr. Oneal [phone].oncology is on the case #Normocytic anemia s/p transfusion of RBC , keep h/h above 8.0 # Neutropenia with ANC 597 , neutropenic precautions, on acyclovir for px, Continue Acyclovir. If ANC less than 500 consider antifungal and antibacterial prophylaxis. 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 Patient wants to leave since feeling better. advised her to wear masks at all the times in b/t people, while travelling in the plane. Patient understands the risks, still wants to leave against the medical advice. ordered FISH, flow cytometry, cytogenertics DVT px: SCds
[2019-08-16 18:11] VITALS: BP 128/70; PULSE 78; TEMP 98.3
--- NOTE | 2019-08-16 18:17 | PN ---
Teaching Attending Note Name of Resident: Deinlson Case ATTENDING PHYSICIAN STATEMENT I saw and evaluated the patient. I reviewed the resident's note and discussed the case with the resident. I agree with the resident's findings and plan as documented. 44 y/o lady with PMH of CML (on Tasigna/Nilotinib) presents to ED with generalized weakness. pt states that these symptoms began last night. 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 She stated to adm team that for the past 2 months her pancytopenia worsened causing her to have increased vaginal bleeding for which she takes tranexamic acid and norethindrone. She stated to adm team that for the past month she has recurrent episodes of generalized weakness and needs transfusions every week. her last transfusion was 5-6 days ago in [place] which she received 2 units of prbc. she follows up with her oncologist 2x/ week. she came from [place] on 08/09 and is returning on 08/17. she denies fevers/ chills, nausea, vomiting, chest pain. SUBJECTIVE: Doing well. She was upset as she thought was not going to be released today OBJECTIVE: Last Vital Signs Temp Pulse Resp BP Pulse Ox 98.3 F 78 18 128/70 99 08/16/19 18:00 08/16/19 18:00 08/16/19 18:08/16/19 18:08/16/19 09:00 GENERAL: Awake, alert, and fully oriented, in no acute distress.pallor HEAD: Normal with no signs of trauma.hair loss EYES: Pupils equal, round and reactive to light, extraocular movements intact, sclera anicteric, EARS, NOSE, THROAT: Ears normal, nares patent, oropharynx clear without exudates. Moist mucous membranes.no thrush or mycositis NECK: Normal range of motion, supple without lymphadenopathy, breast with no palpated masses noded : no enlarged nodules palpated LUNGS: Breath sounds equal, clear to auscultation bilaterally. No wheezes, and no crackles. No accessory muscle use. HEART: Regular rate and rhythm, normal S1 and S2 without murmur, rub or gallop. ABDOMEN: Soft, nontender, not distended, normoactive bowel sounds, no guarding, LOWER EXTREMITIES: 2+ pulses, warm, well-perfused. No calf tenderness. No peripheral edema. NEUROLOGICAL: no focal deficit . Normal speech. PSYCHIATRIC: Cooperative. Good eye contact. SKIN: Warm, dry, normal turgor, head hair loss ASSESSMENT AND PLAN: 44 y/o lady with PMH of CML on nilotinib now transformed to AML presents to ED with generalized weakness. 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 Pt was told that she needs to start chemotherapy treatment [facility] and not doing so risks her life. She mentioned want to continue treatment with her oncologist in [place] (Dr. Case spoke with Dr. Oneal [phone]) and understood the risks of leaving including due to infection, bleeding or multiple other causes. Therefore, she agreed to leave against medical advice. 2) Cytopenias. Continue Acyclovir. If ANC less than 500 consider antifungal and antibacterial prophylaxis. Pt educated on protecting herself from infection at all times. Please transfuse to Hb>7-8, if travel 8 is OK 3) Vaginal bleeding. Managed Care Specialist input. 4) Thank you for this consult.
[2019-08-16 18:43] LABS: BASO % 0.9 % (0-2.0); EOS % 0.1 % (0-4.5); HEMATOCRIT 24.5 % (32.4-45.2); HEMOGLOBIN 8.2 GM/dL (10.7-15.3); LYMPH % 29.7 % (8-40); MCH 28.1 pg (25.7-33.7); MCHC 33.5 g/dl (32.0-36.0); MEAN PLT VOLUME 9.1 fl (7.5-11.1); NEUT % 35.3 % (42.8-82.8); PLATELET COUNT 123 K/MM3 (134-434); RBC 2.92 M/mm3 (3.60-5.2); RDW 15.4 % (11.6-15.6); WHITE BLOOD COUNT 2.4 K/mm3 (4.0-10.0)
--- NOTE | 2019-08-16 19:18 | PN ---
Progress Note (short form) - Note Progress Note: Informed by nurse that patient wants to leave AMA. Spoke with patient, states that she is not amenable to staying and would like to leave as her flight back to [place] is tomorrow and she wants to spend time with her family. Risks and benefits explained to patient. AMA form signed by patient.
[2019-08-16 20:53] LABS: CORRECTED WBC 2.02 K/mm3
[2019-08-16 20:54] LABS: PLATELET ESTIMATE SLT DECREASE
--- NOTE | 2019-08-17 08:14 | DS ---
Physical Exam: SUBJECTIVE: Patient seen and examined. She reports feeling better after 1 unit of blood--decreased weakness, no headache, dizziness, chest pain, shortness of breath. She is tolerating diet. OBJECTIVE: Vital Signs Period Temp Pulse Resp BP Sys/Pretty Pulse Ox Last 24 Hr 97.9 F-98.8 F 78-90 14-18 123-132/68-70 99 PHYSICAL EXAM GENERAL: The patient is awake, alert, and fully oriented, in no acute distress. HEAD: Normal with no signs of trauma. EYES: PERRL, extraocular movements intact, sclera anicteric, conjunctiva clear. ENT: Ears normal, nares patent, moist mucous membranes. NECK: Trachea midline, full range of motion LUNGS: Clear to auscultation bilaterally, no wheezes, no crackles HEART: Regular rate and rhythm, S1, S2 without murmur ABDOMEN: Soft, nontender, nondistended, normoactive bowel sounds EXTREMITIES: Warm, well-perfused, no edema. NEUROLOGICAL: Cranial nerves II through XII grossly intact. Normal speech, gait not observed. PSYCH: Normal mood, normal affect. SKIN: Warm, dry, normal turgor LABS Laboratory Results - last 24 hr 08/15/19 08/16/19 08/16/19 16:24 08:10 08:10 WBC 1.8 L* Corrected WBC (auto) RBC 2.44 L Hgb 6.8 L* Hct 20.0 L MCV 82.2 MCH 27.8 MCHC 33.9 RDW 15.9 H Plt Count 123 L MPV 9.1 Absolute Neuts (auto) 0.6 L Neutrophils % 33.2 L Neutrophils % (Manual) 33.7 L Band Neutrophils % 5.3 Lymphocytes % 32.8 D Lymphocytes % (Manual) 23.2 D Monocytes % 32.4 H Monocytes % (Manual) 8 Eosinophils % 0.1 Eosinophils % (Manual) 0.0 D Basophils % 1.5 Basophils % (Manual) 0.0 Myelocytes % (Man) 3 H Promyelocytes % (Man) 0 Blast Cells % (Manual) 21 H Nucleated RBC % 8 H Metamyelocytes 1 Hypochromia 0 Platelet Estimate Decreased Platelet Comment Polychromasia 2+ Poikilocytosis 1+ Anisocytosis 3+ Microcytosis 3+ Macrocytosis 0 Stomatocytes 1+ Sodium 140 Potassium 3.7 Chloride 105 Carbon Dioxide 30 Anion Gap 5 L BUN 7.7 Creatinine 0.6 Est GFR (CKD-EPI)AfAm 127.58 Est GFR (CKD-EPI)NonAf 110.08 Random Glucose 149 H Hemoglobin A1c % Calcium 8.4 L Phosphorus 4.7 Magnesium 2.1 Total Bilirubin 2.2 H AST 8 L ALT 17 Alkaline Phosphatase 57 Total Protein 5.8 L Albumin 3.4 Blood Type O POSITIVE Antibody Screen Negative Crossmatch See Detail 08/16/19 08/16/19 08:10 18:15 WBC 2.4 L Corrected WBC (auto) 2.02 RBC 2.92 L Hgb 8.2 L Hct 24.5 L D MCV 84.0 MCH 28.1 MCHC 33.5 RDW 15.4 Plt Count 123 L MPV 9.1 Absolute Neuts (auto) 0.8 L Neutrophils % 35.3 L Neutrophils % (Manual) 25.0 L Band Neutrophils % 6.0 Lymphocytes % 29.7 Lymphocytes % (Manual) 30.0 D Monocytes % 34.0 H Monocytes % (Manual) 15 H D Eosinophils % 0.1 Eosinophils % (Manual) 0.0 Basophils % 0.9 Basophils % (Manual) 0.0 Myelocytes % (Man) 4 H D Promyelocytes % (Man) 0 Blast Cells % (Manual) 15 H D Nucleated RBC % 19 H* Metamyelocytes 2 D Hypochromia Platelet Estimate Slt decrease Platelet Comment No clumping noted Polychromasia Poikilocytosis Anisocytosis Microcytosis Macrocytosis Stomatocytes Sodium Potassium Chloride Carbon Dioxide Anion Gap BUN Creatinine Est GFR (CKD-EPI)AfAm Est GFR (CKD-EPI)NonAf Random Glucose Hemoglobin A1c % 6.0 Calcium Phosphorus Magnesium Total Bilirubin AST ALT Alkaline Phosphatase Total Protein Albumin Blood Type Antibody Screen Crossmatch HOSPITAL COURSE: Ms. Kat is a 44y/o female with AML who presents with generalized weakness. She gets blood transfusions at least weekly and was visiting family while she became weak. Hb was 6.7 and pt was transfused 1 unit Hb was 6.8. After 2nd unit 8.2. She reported feeling better after first unit. She is from [place] and has a flight on 08/17, so she wanted to leave [place]. She was explained the risks and signed the form. She will follow up with her oncologist back home. Blood cx negative. Pt was on tasigna, acyclovir, tranexamic acid at home. norethindrone Date of Admission:08/15/19 Date of Discharge: 08/16/19 Minutes to complete discharge: 35 Discharge Summary Problems reviewed: Yes Reason For Visit: ACUTE MYELOID LEUKEMIA, ANEMIA, CHRONIC MYELOID Condition: Fair - Instructions Disposition: HOME - Home Medications Comprehensive Discharge Medication List: Ambulatory Orders Acyclovir [Zovirax -] 400 mg PO BID 08/15/19 Nilotinib HCl [Tasigna] 400 mg PO BID 08/15/19 Norethindrone Acetate 5 mg PO DAILY 08/15/19 Tranexamic Acid 1,300 mg PO TID 08/15/19 This patient is new to me today: Yes Date on this admission: 08/16/19 Emergency Visit: Yes ED Registration Date: 08/15/19 Care time: The patient presented to the Emergency Department on the above date and was hospitalized for further evaluation of their emergent condition. Critical Care patient: No - Discharge Referral Referred to [facility] Med P.C.: No ATTENDING PHYSICIAN STATEMENT I saw and evaluated the patient. I reviewed the resident's note and discussed the case with the resident. I agree with the resident's findings and plan as documented. SUBJECTIVE: OBJECTIVE: ASSESSMENT AND PLAN:
--- NOTE | 2019-08-17 15:08 | PATH ---
Surgical Pathology Report Patient Name: SANJEEV BINGHAM Med. Rec. #: [id number] /Age/Gender: 1975 (Age: 44) / F Account: [id number] Location: [facility] Taken: 08/16/2019 Received: 08/16/2019 Reported: 08/17/2019 Physicians: Melody Dugan M.D. Specimen(s) Received PERPHERAL BLOOD IN FOUR GREEN TOP TUBES Clinical History AML? Final Diagnosis Comprehensive Flow Panel performed and interpreted at [place], [place] shows the following: Interpretation: The CD34+ myeloblasts are 27% of total events, consistent with peripheral blood involvement by acute myeloid leukemia (AML). Comment: Correlation with relevant clinical and laboratory data is essential. Phenotype: An immature CD34+, CD117+, HLA-DR+, CD11b+, CD13+, CD7+, CD33+, CD16-, CD11c (dim positive) myeloid population, 27% of total events, is present. Left-shifted granulocytes. The B-cells are very rare (0.1% of total). The T-cells (18% of total) show no nunn T-cell antigenic deletion. Additional Tests: Cytogenetics, FISH See [facility] report ([id number]) for additional details. Note: The results were discussed with Dr. Dugan on 08/17/2009. Electronically Signed Abdullahi Lynn M.D. Addendum Reported: 08/20/2019 Addendum Diagnosis Acute Myeloid Leukemia FISH Panel performed and interpreted at [facility] shows the following: INTERPRETATION: Deletion 7q (7q-) is present. Trisomy 8 is present. The BCR/ABL1 t(9;22) translocation is detected. No evidence of deletion 5q or monosomy 5 is present. No evidence of a rearrangement of 11q23. No PML/MYLES t(15;17) translocation is detected. No ETO/AML1 t(8;21) translocation is detected. No CBFB (16q22) rearrangement is detected. Comments: Monosomy 7 is present in all MDS subtypes and AML. The presence of monosomy 7 or deletion 7q is associated with a poor clinical outcome in MDS. Trisomy 8 is observed in myeloid malignancies including myelodysplastic syndromes, chronic myeloproliferative neoplasms, and acute myeloid leukemia, where it is considered an intermediate to unfavorable prognostic marker. Fluorescence in situ hybridization (FISH) analysis with the t(9;22) ABL1/BCR probe set showed evidence of a t(9;22)/ABL1/BCR gene rearrangement in 139 of 200 (69.5%) interphase nuclei. In 3 of 200 (1.5%) cells an additional derivative chromosome, probably representing an additional copy of the derivative chromosome 22 (Scurry chromosome), was present. These findings are consistent with a clinical diagnosis of chronicmyelogenous leukemia (CML). The additional Scurry chromosome is indicative of disease progression (blast crisis). Correlation with pending cytogenetics ([id number]) is recommended. See [facility] report for additional details ([id number]). Abdullahi Lynn M.D. Addendum Reported: 08/23/2019 Addendum Diagnosis CYTOGENETIC KARYOTYPE ANALYSIS performed and interpreted at [facility] shows the following: RESULTS : 45,XX,-7,t(9;22)(q34;q11.2)[20] INTERPRETATION: ABNORMAL KARYOTYPE with t(9;22)(q34;q11.2)/BCR-ABL1, most commonly observed in CML; however, also present in AML with poor prognosis. All the analyzed metaphase cells exhibited loss of one chromosome 7 and a reciprocal translocation between the long arms of a chromosomes 9 and 22, resulting in a BCR/ABL1 gene rearrangement. No cells had a normal chromosome complement. The t(9;22) is most commonly observed in chronic myelogenous leukemia. It is also observed in approximately 3% of acute myelogenous leukemia cases, with or without a prior CML in blast crisis. In AML, this rearrangement is associated with an adverse clinical course. Monosomy 7 is associated with a high likelihood of impending leukemic transformation and an unfavorable prognosis. Correlation with other clinical and hematologic data and periodic PCR and cytogenetic/FISH and molecular monitoring are recommended. Analysis was performed on cells from unstimulated tissue cultures. See [facility] report for additional details ([id number]). Abdullahi Lynn M.D. Gross Description Received peripheral blood in four green top tubes. [facility] for analysis
--- NOTE | 2019-08-17 18:35 | PN ---
Progress Note (short form) - Note Progress Note: called patient and left message for her to call me back. Left contact no. Left message with answering service of her oncologist
== END 2019-08-16 20:15 | disposition home or self-care (01) | DRG 690 ==
LOC: JER 15:23 → JERBED 18:16 → J6S 22:39 → J4S 08-16 01:23
PROVIDERS: ADMIT Internal Medicine; ATTEND Internal Medicine
PROC: 30233N1 Transfusion of Nonautologous Red Blood Cells into Peripheral Vein, Percutaneous Approach (ICD-10-PCS; principal; 2019-08-15)
DX: C92.00 Acute myeloblastic leukemia, not having achieved remission (principal); D61.818 Other pancytopenia; D69.6 Thrombocytopenia, unspecified; N93.9 Abnormal uterine and vaginal bleeding, unspecified; D63.0 Anemia in neoplastic disease
CPT/HCPCS: 36415; 36430; 36511; 71045-TC-FY; 80053; 82550; 83036; 83735; 84100; 84484; 85025; 85610; 85730; 86850; 86900; 86901; 86922; 87040; 88300-TC; 93005; 93010; 99285-25; P9038; P9058